=== PATIENT | male | born 1995 | race Caucasian/White ===

== ENCOUNTER 2024-09-23 00:02 | Emergency (ER) | payer SELFPAY ==
[~2024-09-23] VITALS: Ht 170.2 cm; Wt 72.0 kg
[2024-09-23 00:08] VITALS: TEMP 37.2
[2024-09-23] MEDS: SODIUM CHLORIDE 0.9% 1,000 ML IV ONE ×2 (00:15→00:30)
[2024-09-23] MEDS: LORAZEPAM 2MG/ML INJ IV ONE (00:35)
[2024-09-23] MEDS: MIDAZOLAM HCL 2 MG/2 ML VIAL IM ONE ×2 (00:48→01:14)
[2024-09-23 01:14] VITALS: O2SAT 99
[2024-09-23 02:46] LABS: HEMATOCRIT. 46.6 % (42.0-52.0); HEMOGLOBIN. 16.2 g/dL (14.0-18.0); MEAN CORPUSCULAR HEMOGLOBIN 32.2 pg (28.0-32.0); MEAN CORPUSCULAR HGB CONC 34.7 g/dL (31.0-37.0); MEAN PLATELET VOLUME 8.2 fl (7.4-10.4); PLATELET 164 x1000/uL (130-400); RED BLOOD CELL COUNT 5.01 mill/uL (4.7-6.1); RED CELL DISTRIBUTION WIDTH 13.1 % (11.6-14.6); WHITE BLOOD COUNT 12.9 x1000/uL (4.5-11.0)
[2024-09-23 02:49] LABS: DIFFERENTIAL COMMENT 1
[2024-09-23 02:55] LABS: CHLORIDE 106 mEq/L (98-107); POTASSIUM 3.7 mEq/L (3.5-5.1); SODIUM 140 mEq/L (136-145)
[2024-09-23 02:56] LABS: CALCIUM 9.4 mg/dL (8.7-10.4); CARBON DIOXIDE 25 mEq/L (21-32)
[2024-09-23 03:01] LABS: GLUCOSE 92 mg/dL (70-105); UREA NITROGEN BLOOD 12 mg/dL (9-23)
[2024-09-23 03:03] LABS: ACETAMINOPHEN < 2 ug/mL (10-30); CREATINE KINASE 161 IU/L (46-171); TROPONIN I HIGH SENSITIVITY 5 ng/L (3.0-53)
[2024-09-23 03:04] LABS: AMMONIA < 17 uMol/L (<32)
[2024-09-23 03:11] LABS: ETHANOL BLOOD < 10 mg/dL (<10)
[2024-09-23 04:52] LABS: CLARITY URINE CLEAR (CLEAR); COLOR URINE YELLOW (YELLOW); GLUCOSE URINE TRACE (NEGATIVE); KETONES URINE NEGATIVE (NEGATIVE); LEUKOCYTE ESTERASE URINE NEGATIVE (NEGATIVE); NITRITE URINE NEGATIVE (NEGATIVE); OCCULT BLOOD URINE NEGATIVE (NEGATIVE); PH URINE 7.5 (4.5-8.0); PROTEIN URINE NEGATIVE (NEGATIVE); SPECIFIC GRAVITY URINE 1.011 (1.005-1.030); UROBILINOGEN URINE 0.2 E.U./dL (0.2-1.0)
[2024-09-23 04:54] LABS: *AMPHETAMINES SCREEN URINE NEGATIVE (NEGATIVE); *BARBITURATES SCREEN URINE NEGATIVE (NEGATIVE); *BENZODIAZEPINES SCREEN URINE PRESUMPTIVE POSITIVE (NEGATIVE); *COCAINE SCREEN URINE NEGATIVE (NEGATIVE); METHADONE URINE SCREEN NEGATIVE (NEGATIVE)
[2024-09-23 04:55] LABS: CANNABINOID URINE SCREEN PRESUMPTIVE POSITIVE (NEGATIVE); ECSTASY MDMA SCREEN URINE NEGATIVE (NEGATIVE); OPIATES URINE SCREEN NEGATIVE (NEGATIVE); PHENCYCLIDINE URINE SCREEN NEGATIVE (NEGATIVE)
[2024-09-23 05:46] VITALS: BP 136/77; PULSE 76; RESP 18; O2SAT 100
[2024-09-23 06:30] LABS: BACTERIA URINE NONE SEEN; RBC URINE 0-2 /hpf (0-2); SQUAMOUS EPITHELIAL CELL URINE NONE SEEN /lpf (RARE/1+); WBC URINE 0-2 /hpf (0-2)
[2024-09-23] MEDS ORDERED: IOHEXOL-350 100 ML BOTTLE ONE (07:25)
[2024-09-23 07:52] LABS: PLATELET ESTIMATE NORMAL
== END 2024-09-23 05:45 | disposition home or self-care (01) ==
LOC: ER 00:02
DX: F10.129 Alcohol abuse with intoxication, unspecified (principal); F19.10 Other psychoactive substance abuse, uncomplicated; I10 Essential (primary) hypertension; Z79.899 Other long term (current) drug therapy
CPT/HCPCS: 80305; 80048; 81003; 80307; 80329; 80320; 82140; 82550; 85025; 84484; 36415; 71045; 70496; 70498; 70450; 96361; 96372; 96374; 99291; Q9967; J2060; J2250; J7030; Z7610; A4606; G0480